=== PATIENT | male | born 1955 | race Caucasian/White ===

== ENCOUNTER 2019-10-23 22:07 | Emergency (ER) | payer OTHER ==
[~2019-10-23] VITALS: Ht 180.3 cm; Wt 106.6 kg
[2019-10-23 22:51] LABS: URINE CLARITY CLOUDY; URINE COLOR ORANGE
[2019-10-23 22:54] LABS: URINE SPECIFIC GRAVITY 1.015 (1.005-1.030)
[2019-10-23 22:59] LABS: URINE WBC-REFLEX >25 Many /HPF (0-5); WBC CLUMPS Few (None Seen)
[2019-10-23 23:00] LABS: BACTERIA-REFLEX 1-9 Few /HPF (None Seen); CASTS None Seen /LPF (None Seen); CRYSTALS None Seen /LPF (None Seen); SQUAMOUS NONE SEEN /LPF (0-3); URINE RBC 3-10 Few /HPF (0-2)
[2019-10-23 23:01] LABS: MUCUS 0-3 Light strn/LPF (None Seen)
[2019-10-23] MEDS ORDERED: BACTRIM DS TAB1 EACH PO (23:05)
[2019-10-23 23:27] VITALS: BP 140/82
== END 2019-10-23 23:28 | disposition home or self-care (01) ==
LOC: M.ERS 22:07
PROVIDERS: Nurse Practitioner Psychiatric/Mental Health
DX: N39.0 Urinary tract infection, site not specified (principal)

== ENCOUNTER 2021-01-23 10:47 | Emergency (ER) | payer MEDICARE ==
[~2021-01-23] VITALS: Ht 180.3 cm; Wt 99.8 kg
[~2021-01-23 10:47] MED LIST: BACTRIM DS TAB1 EACH PO
[2021-01-23 11:36] LABS: ABSOLUTE BASOPHILS 0.1 thou/uL (0.0-0.2); ABSOLUTE LYMPHOCYTES 1.7 thou/uL (0.8-5.3); ABSOLUTE MONOCYTES 0.7 thou/uL (0.0-1.2); ABSOLUTE NEUTROPHILS 3.7 thou/uL (1.6-8.1); BASOPHILS 1.2 %; EOSINOPHILS 0.5 %; HEMATOCRIT 45.1 % (42.0-52.0); HEMOGLOBIN 15.4 gm/dL (14.0-18.0); MCH 30.9 pg (26.0-34.0); MONOCYTES 11.3 %; NUCLEATED RBCS 0 /100WBC; PLATELET COUNT* 300 thou/uL (150-400); RBC 4.96 mil/uL (4.50-6.00); RDW-CV 12.5 % (10.5-14.5); WBC 6.1 thou/uL (4.0-11.0)
[2021-01-23 11:44] LABS: CALCIUM 8.8 mg/dL (8.5-10.1); CREATININE 0.8 mg/dL (0.6-1.3); POTASSIUM 3.8 mmol/L (3.5-5.1)
[2021-01-23 11:53] LABS: ALBUMIN 3.9 g/dL (3.4-5.0); TOTAL BILIRUBIN 0.7 mg/dL (<0.1-1.0); TOTAL PROTEIN 7.9 g/dL (6.4-8.2)
[2021-01-23] MEDS ORDERED: EAR WAX DROPS15 ML LT. EAR (13:22)
[2021-01-23 13:29] VITALS: BP 141/70
== END 2021-01-23 13:30 | disposition home or self-care (01) ==
LOC: M.ERS 10:47
PROVIDERS: Family Medicine
DX: H93.13 Tinnitus, bilateral (principal)